=== PATIENT | female | born 1940 | race Caucasian/White ===

== ENCOUNTER → 2020-11-15 10:05 | Outpatient (BNVA) | payer MEDICARE, SELFPAY | PROVIDERS: Visit Provider Family Medicine | DX: R05 Cough (principal) | CPT/HCPCS: 71046 ==

== ENCOUNTER → 2022-01-31 10:41 | Outpatient (BNVA) | payer MEDICARE, SELFPAY | PROVIDERS: Visit Provider Family Medicine | DX: E83.52 Hypercalcemia (principal) | CPT/HCPCS: 82310; 83970 ==

== ENCOUNTER → 2022-07-19 11:00 | Outpatient (BNVA) | payer MEDICARE, SELFPAY | PROVIDERS: Visit Provider Nurse Practitioner Family | DX: I10 Essential (primary) hypertension (principal); E83.52 Hypercalcemia; E55.9 Vitamin D deficiency, unspecified; M81.0 Age-related osteoporosis without current pathological fracture | CPT/HCPCS: 80053; 80061; 82306; 84443; 85025 ==

== ENCOUNTER 2022-08-28 06:00 | Outpatient (RCR) | payer MEDICARE, SELFPAY | END 2022-09-12 23:55 | disposition home or self-care (01) | LOC: GPT 06:00 | PROVIDERS: Visit Provider Family Medicine | DX: R26.81 Unsteadiness on feet (principal) | CPT/HCPCS: 97110; 97112; 97161 ==

== ENCOUNTER 2022-09-13 06:00 | Outpatient (RCR) | payer MEDICARE, SELFPAY | END 2022-09-21 23:59 | disposition home or self-care (01) | LOC: GPT 06:00 | PROVIDERS: Visit Provider Family Medicine | DX: R26.81 Unsteadiness on feet (principal); M62.81 Muscle weakness (generalized) | CPT/HCPCS: 97112 ==

== ENCOUNTER → 2022-12-28 09:12 | Outpatient (BNVA) | payer MEDICARE, SELFPAY | PROVIDERS: PCP Family Medicine; Visit Provider Family Medicine | DX: M81.0 Age-related osteoporosis without current pathological fracture (principal); E83.52 Hypercalcemia; R26.81 Unsteadiness on feet; E78.5 Hyperlipidemia, unspecified; I10 Essential (primary) hypertension | CPT/HCPCS: 80053; 80061; 82306; 84439; 84443; 85025 ==

== ENCOUNTER 2023-05-20 06:00 | Outpatient (RCR) | payer MEDICARE, SELFPAY | END 2023-06-13 23:59 | disposition home or self-care (01) | LOC: GPT 06:00 | PROVIDERS: Visit Provider Family Medicine | DX: M54.42 Lumbago with sciatica, left side (principal) | CPT/HCPCS: 97110; 97140; 97162; 97530 ==

== ENCOUNTER 2023-06-14 06:00 | Outpatient (RCR) | payer MEDICARE, SELFPAY | END 2023-06-28 11:43 | disposition home or self-care (01) | LOC: GPT 06:00 | PROVIDERS: Visit Provider Family Medicine | DX: M54.42 Lumbago with sciatica, left side (principal) | CPT/HCPCS: 97110; 97530 ==

== ENCOUNTER → 2023-10-02 09:24 | Outpatient (BNVA) | payer MEDICARE, SELFPAY | PROVIDERS: PCP Family Medicine; Visit Provider Family Medicine | DX: M81.0 Age-related osteoporosis without current pathological fracture (principal); E78.5 Hyperlipidemia, unspecified; I10 Essential (primary) hypertension; Z86.39 Personal history of other endocrine, nutritional and metabolic disease; R35.0 Frequency of micturition; M54.30 Sciatica, unspecified side | CPT/HCPCS: 80053; 80061; 81003; 82306; 85025 ==

== ENCOUNTER → 2024-02-27 11:07 | Outpatient (BNVA) | payer MEDICARE, SELFPAY | PROVIDERS: PCP Family Medicine; Visit Provider Family Medicine | DX: I10 Essential (primary) hypertension (principal); E78.5 Hyperlipidemia, unspecified; E83.52 Hypercalcemia; Z76.89 Persons encountering health services in other specified circumstances; E83.42 Hypomagnesemia; E55.9 Vitamin D deficiency, unspecified; R79.89 Other specified abnormal findings of blood chemistry; E78.2 Mixed hyperlipidemia; Z78.9 Other specified health status | CPT/HCPCS: 80053; 80061; 82306; 82607; 82746; 83735; 84439; 84443; 85025 ==

== ENCOUNTER → 2024-08-12 14:11 | Outpatient (BNVA) | payer MEDICARE, SELFPAY | PROVIDERS: PCP Family Medicine; Visit Provider Family Medicine | DX: I10 Essential (primary) hypertension (principal); R30.9 Painful micturition, unspecified; E78.2 Mixed hyperlipidemia; R53.82 Chronic fatigue, unspecified; Z86.39 Personal history of other endocrine, nutritional and metabolic disease | CPT/HCPCS: 80053; 80061; 81000; 82306; 82607; 82728; 83540; 83735; 84439; 84443; 86140 ==

== ENCOUNTER → 2025-08-31 15:15 | Outpatient (BNVA) | payer MEDICARE, SELFPAY | PROVIDERS: PCP Family Medicine; Visit Provider Family Medicine | DX: R06.02 Shortness of breath (principal); R09.89 Other specified symptoms and signs involving the circulatory and respiratory systems; R41.89 Other symptoms and signs involving cognitive functions and awareness; I10 Essential (primary) hypertension; E78.2 Mixed hyperlipidemia; R79.89 Other specified abnormal findings of blood chemistry; E83.42 Hypomagnesemia | CPT/HCPCS: 71046; 80053; 80061; 82306; 82607; 82746; 83540; 83735; 84439; 84443; 85025; 85651; 86038; 86140 ==